=== PATIENT | male | born 2000 | race Hispanic/Latino ===

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

== ENCOUNTER 2023-06-27 15:19 | Emergency (ER) | payer MEDICAID, OTHER ==
[~2023-06-27] VITALS: Ht 175.3 cm; Wt 86.2 kg
[2023-06-27 15:59] VITALS: BP 141/72; PULSE 92; RESP 20; O2SAT 100
[2023-06-27] MEDS ORDERED: TETANUS/DIPHTHERIA TOXOID [ADULT] 0.5 ML VIAL IM ONE (16:00)
== END 2023-06-27 16:14 | disposition home or self-care (01) ==
LOC: EDH 15:19
DX: S61.211A Laceration without foreign body of left index finger without damage to nail, initial encounter (principal); X58.XXXA Exposure to other specified factors, initial encounter; Y93.89 Activity, other specified; Y92.89 Other specified places as the place of occurrence of the external cause; Y99.8 Other external cause status
CPT/HCPCS: 90471; 90714

== ENCOUNTER 2024-11-20 10:51 | Emergency (ER) | payer BC ==
[~2024-11-20] VITALS: Ht 180.3 cm; Wt 88.5 kg
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
[2024-11-20] MEDS: HYDROcodone/APAP 5/325 1 TAB TABLET PO ONE (11:31)
[2024-11-20] MEDS: LIDOCAINE HCL 1% 20 ML VIAL INJ SCH (11:36)
--- NOTE | 2024-11-20 12:01 | HMCIMG ---
HAND 3+VWS LT CLINICAL HISTORY: laceration, possible FB COMPARISON: None TECHNIQUE: AP lateral and oblique images were obtained. FINDINGS: There is an oblique laceration through the tip of the third digit with no identified radiopaque foreign body. The bony structures are intact. IMPRESSION: Soft tissue laceration with no bony fracture or foreign body
[2024-11-20 12:17] VITALS: BP 145/90; PULSE 85; RESP 16; TEMP 98.3; O2SAT 98
[2024-11-20] MEDS ORDERED: AMOX1TAB16 PO (12:40)
[2024-11-20] MEDS ORDERED: IBUP-2070 PO (12:40)
[2024-11-20] MEDS ORDERED: AMOX/CLAV 875/125MG TAB PO ONE (13:00)
--- NOTE | 2024-11-20 13:22 | NUR ---
4 sutures placed wound clean dry and intact pt instructed sutures to be removed 12 days
== END 2024-11-20 13:15 | disposition home or self-care (01) ==
LOC: EDH 10:51
DX: S61.213A Laceration without foreign body of left middle finger without damage to nail, initial encounter (principal); X58.XXXA Exposure to other specified factors, initial encounter; Y93.89 Activity, other specified; Y92.89 Other specified places as the place of occurrence of the external cause; Y99.8 Other external cause status
CPT/HCPCS: 12011; 73130; 99283

== ENCOUNTER 2025-02-23 20:14 | Emergency (ER) | payer BC ==
[~2025-02-23] VITALS: Ht 180.3 cm; Wt 86.2 kg
[~2025-02-23 20:14] MED LIST: AMOX1TAB16 PO; IBUP-2070 PO
[2025-02-23 20:20] VITALS: BP 147/82; PULSE 116; RESP 24; TEMP 99; O2SAT 100
--- NOTE | 2025-02-23 20:21 | NUR ---
DENIES TAKING ANY HOME MEDICATIONS
[2025-02-23 20:32] LABS: BASOPHILS # (AUTO) 0.02 K/uL (0.00-0.20); BASOPHILS % (AUTO) 0.3 % (0.0-5.0); EOSINOPHILS # (AUTO) 0.13 K/uL (0.00-0.70); EOSINOPHILS % (AUTO) 1.9 % (0.0-8.0); IMMATURE GRANULOCYTE ABSOLUTE 0.02 K/uL (0-1); LYMPHOCYTES # (AUTO) 2.4 K/uL (1.0-4.8); LYMPHOCYTES % (AUTO) 35.2 % (21.0-51.0); MEAN CORPUSCULAR HEMOGLOBIN 30.3 pg (27.0-33.0); MEAN CORPUSCULAR HGB CONC 34.6 g/dL (32.0-36.0); MEAN CORPUSCULAR VOLUME 87.4 fL (79-99); MONOCYTES # (AUTO) 0.5 K/uL (0.1-1.0); MONOCYTES % (AUTO) 7.3 % (3.0-13.0); NEUTROPHILS # (AUTO) 3.8 K/uL (1.8-7.7); PLATELET COUNT (AUTO) 238 K/uL (130-400); RED BLOOD CELL COUNT(AUTO) 4.69 MIL/uL (4.50-6.20); RED CELL DISTRIBUTION WIDTH 12.9 % (11.0-15.5); WHITE BLOOD COUNT (AUTO) 6.9 K/uL (4.8-10.8)
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
[2025-02-23] MEDS: 0.9%NACL 1000ML 1,000 ML IV ONE (20:33)
[2025-02-23] MEDS: teTANUS/diphthERIA TOXOID [ADULT] 0.5 ML VIAL IM ONE (20:33)
[2025-02-23 20:42] LABS: CARBON DIOXIDE 27 mmol/L (21-32); CHLORIDE 103 mmol/L (101-111); CREATININE 0.9 mg/dL (0.5-1.3); GLOMERULAR FILTR. RATE CALC 124 mL/min (>90); GLUCOSE,RANDOM 91 mg/dL (70-105); POTASSIUM 3.4 mmol/L (3.5-5.1); SODIUM SERUM 140 mmol/L (136-145); UREA NITROGEN, BLOOD 12 mg/dL (7-18)
[2025-02-23] MEDS ORDERED: IOHEXOL-350 50ML VIAL IV ONE (20:42)
[2025-02-23 20:44] LABS: INR 1.03 (0.85-1.15); PROTHROMBIN TIME 10.9 SEC (9.6-11.6)
[2025-02-23 20:46] LABS: PARTIAL THROMBOPLASTIN TIME 29.6 SEC (26.3-35.5)
[2025-02-23 20:53] LABS: ALCOHOL, BLOOD < 3 mg/dL (0-10)
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
--- NOTE | 2025-02-23 22:31 | NUR ---
TRANSFER CALL PLACED TO [facility] TO INITIATE TRANSFER FOR TRAUMA 1 PT.
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
--- NOTE | 2025-02-23 23:00 | NUR ---
TRANSFER TRAUMA PT. HAS BEEN ACCEPTED BY JAI SANTOYO MD [place] [facility] [place] REPORT: [phone]
--- NOTE | 2025-02-23 23:02 | NUR ---
[facility] CALLED FOR TRANSPORT OF MONITORED, LEVEL I TRAUMA PT.
--- NOTE | 2025-02-23 23:43 | NUR ---
REPORT GIVEN TO [facility] [place]- ER TO ALONZO SHAH
--- NOTE | 2025-02-24 08:30 | EKG ---
[facility] Test Date: 2025-02-23 Test Time: 21:12:14 Pat Name: TOÑITO STEPHENSON Department: ED Room: Gender: M Typist: [id number] : 2000 Requested By: CHRISSY CRISTINA Order Number: [id number] Reading MD: Skyla Nugent Measurements Intervals [place] Rate: 71 P: 65 WV: 146 QRS: 19 QRSD: 98 T: 37 QT: 368 QTc: 401 Interpretive Statements Sinus arrhythmia Compared to ECG 12/05/2020 14:48:09 Sinus rhythm no longer present Electronically Signed On 02-25-2025 18:39:05 CDT by Skyla Nugent Please click the below link to view image of tracing.
== END 2025-02-23 23:51 | disposition short-term general hospital (02) ==
LOC: EDH 20:14
DX: S11.91XA Laceration without foreign body of unspecified part of neck, initial encounter (principal); Z79.01 Long term (current) use of anticoagulants; Z79.1 Long term (current) use of non-steroidal anti-inflammatories (NSAID); V29.99XA Rider (driver) (passenger) of other motorcycle injured in unspecified traffic accident, initial encounter; Y93.55 Activity, bike riding; Y92.488 Other paved roadways as the place of occurrence of the external cause; Y99.8 Other external cause status
CPT/HCPCS: 99285; 70450; 71045; 80048; 85025; 85610; 85730; 36415; 90714; 70491; 90471; 93005; J7030; Q9967